=== PATIENT | male | born 1995 | race Caucasian/White ===

== ENCOUNTER 2018-03-04 18:12 | Day surgery (SDC) | payer SELFPAY ==
[~2018-03-04] VITALS: Ht 157.5 cm; Wt 117.9 kg
[2018-03-04] MEDS ORDERED: PIPERACILLIN/TAZO*3.375GM VIAL 3.375 GM in NS(*) 0.9% 100 ML ADDVANT BAG 100 ML IVPB ONE (18:30)
[2018-03-04] MEDS ORDERED: NORMOSOL R SOLN(*) 1000 ML BAG 1,000 ML IV ONE (18:31)
[2018-03-04 18:32] VITALS: BP 141/77
--- NOTE | 2018-03-04 18:37 | Gen Surgery History & Physical ---
History of Present Illness Chief Complaint RLQ abdominal pain History of Present Illness 22 yo male with RLQ pain X 24 hours. +NV, + anorexia. Pain exacerbated with movement and palpation. Presented to urgent care for eval, where ABD CT scan performed revealed early acute appendicitis. No hx IBD or prior abd surgery. No FCS. No symptoms. History Unable To Obtain Past Medical: reviewed Problems: Review of Systems All Systems Reviewed/Normal: Yes, Except as Noted Gastrointestinal: Other (see HPI) Exam General Appearance: Alert, Awake, No Acute Distress, Afebrile Neuro: No Gross deficits Eyes: PERRLA Cardiovascular: Regular Rate and Rhythm, No Edema, No JVD Respiratory: No Respiratory Distress, Clear to Auscultation GI: Other (soft, non-distended, pablito RLQ with + peritoneal signs) : No CVA Tenderness Extremities: Soft and Non Tender, Warm, Pulses, Perfused Integumentary: Skin Intact without Lesion / Mass Psych: Alert & Oriented X3, Appropriate Mood & Affect Medical Decision Making EKG / Imaging Monitor Interpretation: Normal Sinus Rhythm Pre-Admit Course Medical Record Review: Yes Assessment and Plan Problems: (1) Appendicitis Status: Acute Assessment & Plan: Pt recommended to undergo lap' appendectomy, possible open procedure. Proc, risks, benefits discussed at length with the pt. He understands risk of bleeding, infection, abscess, leak, damage to viscera, and need for secondary intervention. Questions answered. Informed consent signed. Time Spent: < 30 min Venous Thromboembolism VTE Risk Physician Assess for VTE Risk: Yes Patient's VTE Risk: Low VTE Diagnostic Test 2 Days Prior to Admit: No Antithrombotics Is Pt On Any Antithrombotics?: No Prophylaxis Tx Contraindicated Pharmacological Contraindicati: Pt at Low Risk for VTE Mechanical Contraindications: Pt at Low Risk for VTE BUCK GALO MD Mar 04, 2018 18:37
[2018-03-04] MEDS ORDERED: FAMOTIDINE(*) 20MG/50ML PREMIX 50 ML IVPB ONE (18:42)
[2018-03-04] MEDS ORDERED: BUPIVACAIN 0.25% INJ 50ML VIAL ONE (18:45)
[2018-03-04] MEDS ORDERED: fentaNYL CITR 250 MCG/5 ML AMP ONE (18:48)
[2018-03-04] MEDS ORDERED: PROPOFOL EMUL(*) 10MG/ML 20 ML 40 ML ONE (18:49)
[2018-03-04] MEDS ORDERED: ONDANSETRON 4 MG/2 ML VIAL ONE (18:49)
[2018-03-04] MEDS ORDERED: DEXAMETHASONE SOD PHOS 10MG/ML ONE (18:49)
[2018-03-04] MEDS ORDERED: MIDAZOLAM 2 MG/2 ML VIAL ONE (18:49)
[2018-03-04] MEDS ORDERED: LIDOCAINE MPF 1% 5 ML VIAL ONE (18:49)
[2018-03-04] MEDS ORDERED: SUGAMMADEX SOD 200 MG/2 ML SDV ONE (18:51)
[2018-03-04] MEDS ORDERED: HALOPERIDOL LACT 5 MG/ML VIAL IM ONE (18:57)
[2018-03-04] MEDS ORDERED: MEPERIDINE 50 MG/ML SYR ONE (20:21)
--- NOTE | 2018-03-04 20:24 | Post Operative Progress Note ---
Post Operative Progress Note Date: Mar 04, 2018 Time: 20:22 Surgeon: Buck Eduardo MD Plane Runner: none Anesthesia: GETA Pre-Op Diagnosis: acute appendicitis Post-Op Diagnosis: same Findings: acute suppurative appendicitis Procedure(s): lap appendectomy Specimen Removed:(May be N/A): appendix Complications: none Total Tourniquet Time: NA Splint: NA Fluids: 1000 ml Estimated Blood Loss: < 50 ml Date OP Note Dictated: Mar 04, 2018 Time OP Note Dictated: 20:23 (Dictation # [id number]) BUCK EDUARDO MD Mar 04, 2018 20:24
[2018-03-04] MEDS ORDERED: HYDR-4309 PO (20:41)
[2018-03-04] MEDS ORDERED: fentaNYL CITR 100 MCG/2 ML AMP ONE (20:59)
[2018-03-04] MEDS ORDERED: APAP/HYDROCODONE 325/7.5 TAB ONE (21:09)
[2018-03-04] MEDS ORDERED: APAP/HYDROCODONE 325/5 TAB ONE ×2 (21:10→21:55)
[2018-03-04 21:15] VITALS: BP 137/66
[2018-03-04 21:24] VITALS: BP 142/76
[2018-03-04 21:26] VITALS: BP 129/92
[2018-03-04] MEDS ORDERED: ACET/HYDROC 5/325MG TH ER ONLY 2 TAB/BOTTLE ONE (21:29)
[2018-03-04 22:06] VITALS: BP 149/87
--- NOTE | 2018-03-05 13:28 | OPERATIVE REPORT 1 ---
EVENT DATE: March 04, 2018 SURGEON: Madison Eduardo MD ANESTHESIOLOGIST: Felice Farah MD ANESTHESIA: General endotracheal anesthesia. PREOPERATIVE DIAGNOSIS Acute appendicitis. POSTOPERATIVE DIAGNOSIS Acute appendicitis. PROCEDURE PERFORMED Laparoscopic appendectomy. INDICATIONS FOR OPERATION This patient is a 22-year-old male with acute peritoneal signs to the right lower quadrant with abnormal CT scan consistent with acute appendicitis. He is brought to the operating room at this time for appendectomy. FINDINGS AT TIME OF OPERATION The patient had a markedly inflamed, acute, suppurative appendicitis with dense adhesions in the right lower quadrant. No evidence of gross perforation. Wound class III. DETAILS OF THE OPERATION On March 04, 2018, patient was brought to the operating room, placed in the supine position. Appropriate lines and monitors were placed. The patient was induced and intubated under general anesthesia without difficulty. He was then prepped and draped in the usual sterile manner. An appropriate timeout was completed prior to the operation. An infraumbilical incision was made to establish a pneumoperitoneum in the standard fashion. Skin, subcutaneous, and fascial tissue were divided using sharp dissection. Peritoneal cavity entered without difficulty. A Rosetta trocar was inserted. The pneumoperitoneum was established. Under direct visualization, two additional trocars were placed, a 5 mm along the lower midline and a 12 mm in the right lower quadrant. The patient was placed in the Trendelenburg position. The appendix was dissected free from its position in the right lower quadrant. A mesoappendix window at the base of the appendix was then fashioned using blunt dissection. The appendix and the mesoappendix were divided using the laparoscopic stapler. The appendix was placed in the Endo Pouch and removed from the abdominal cavity without difficulty. The mesoappendix did require several Ligaclips to maintain hemostasis. The operative field was irrigated copiously, and hemostasis was intact. The fascia at the right lower quadrant was closed with the Clayton- Talib device. All trocars were removed under direct vision, and the sites were hemostatic. Pneumoperitoneum was evacuated. The fascia at the umbilical site was closed with the two stay sutures in a [id number] fashion. Wound was infiltrated with a total of 40 mL 0.25% Marcaine. Skin edge reapproximated with a running subcuticular 4-0 PDS. Wounds were then dressed with dry, sterile gauze. Patient was then extubated and taken to the recovery room in stable condition. He tolerated the procedure well. Estimated blood loss less than 50 mL. Final sponge and needle count reported correct times two. CRISTINE
== END 2018-03-04 21:15 | disposition home or self-care (01) ==
LOC: OR 18:12
PROVIDERS: ATTEND Surgery
DX: K35.80 Unspecified acute appendicitis (principal)
CPT/HCPCS: 44970; 88304; J1100; J1630; J2001; J2175; J2250; J2405; J2543; J2704; J3010; J3490; J7050

== ENCOUNTER → 2018-03-04 | Outpatient (CLI) | payer SELFPAY ==
[~2018-03-04] MED LIST: HYDR-4309 PO; IOPAMIDOL 76% 75 ML INFUS BTL 75 ML ONE
--- NOTE | 2018-03-04 17:55 | RADIOLOGY IMAGING REPORT ---
FACILITY: [facility] PATIENT NAME: Alejandro Pickett : 1995 MR: [id number] V: [id number] EXAM DATE: ORDERING PHYSICIAN: MARTA MA TECHNOLOGIST: [facility] Patient: Alejandro Pickett : 1995 Visit/Account:[id number] Date of Sevice: 03/04/2018 EXAMINATION: CT abdomen and pelvis with contrast COMPARISON: None. HISTORY: Abdominal pain. PROCEDURE: Multiplanar contrast enhanced CT of the abdomen and pelvis with 75 mL intravenous Isovue 3 70. One of the following dose optimization techniques was utilized in the performance of this exam: A utomated exposure control; adjustment of the mA and/or kV according to the patient's size; or use of an iterative reconstruction technique. Specific details can be referenced in the facility's radiolo gy CT exam operational policy. FINDINGS: Visualized thorax: Negative. Liver: Negative. Gallbladder and biliary system: Negative Spleen: Negative. Pancreas: Negative. Adrenal glands: Negative. Kidneys and bladder: No renal mass or evidence of an obstructive uropathy. Urinary bladder is unrema rkable. Vessels: Within normal limits. Bowel and mesentery: Stomach is within normal limits. Small bowel is unremarkable. 12 mm appendix wit h periappendiceal inflammation and trace likely reactive fluid in the right paracolic gutter. No calc ified appendicolith. No organized fluid collection or extraluminal gas is identified. Small amount of stool in the colon. No other site of bowel or mesenteric inflammation. Pelvic organs: Negative. Lymph nodes: Prominent right lower quadrant lymph nodes are presumably reactive. Free air/free fluid: No organized fluid collection. No pneumoperitoneum. Abdominal wall and osseous structures: Abdominal wall is intact. L4 chronic bilateral pars defects. N o spondylolisthesis. No acute osseous abnormality. IMPRESSION: 1. Acute uncomplicated appendicitis. 2. L4 chronic bilateral pars defects. Results were discussed with MARTA MA at 03/04/2018 5:50 PM. Report Dictated By: Gilmar Rdz MD at 03/04/2018 5:42 PM Report E-Signed By: Gilmar Rdz MD at 03/04/2018 5:50 PM WSN:[id number]
== END ==
LOC: CT 16:38
PROVIDERS: ATTEND Physician Assistant Medical
DX: K35.80 Unspecified acute appendicitis (principal); M43.06 Spondylolysis, lumbar region
CPT/HCPCS: 74177; Q9967

== ENCOUNTER → 2018-03-04 | Outpatient (REF) | payer SELFPAY ==
[~2018-03-04] MED LIST changes: -IOPAMIDOL 76% 75 ML INFUS BTL 75 ML ONE
[2018-03-04 15:31] LABS: PLATELET COUNT, AUTOMATED 338 K/uL (150-450)
== END ==
PROVIDERS: ATTEND Physician Assistant Medical
DX: R10.9 Unspecified abdominal pain (principal)
CPT/HCPCS: 82040; 82247; 82310; 82374; 82435; 82565; 82947; 84075; 84132; 84155; 84295; 84450; 84460; 84520; 85025

== ENCOUNTER 2018-08-20 14:14 | Emergency (ER) | payer OTHER ==
--- NOTE | 2018-08-20 14:24 | ER Report ---
History and Physical Time Seen By MD: 14:24 Hx. of Stated Complaint: PT SENT BY [facility] MD TO GET CPK RECHECKED. PT HAS MUSCLE PAIN THAT IS STARTING TO RESOLVE AFTER A HARD WORKOUT 1 WEEK AGO. HPI/ROS CHIEF COMPLAINT: Concern for rhabdomyolysis. HISTORY OF PRESENT ILLNESS: This is a 23 year old male. He had labs done at [facility] yesterday after very heavy workout with severe muscle pain. Dr. Brown called from [facility] at the [place] letting me know the CPK level from yesterday was 8000. The patient was shopping in [place] and came back for repeat labs and re-evaluation to see if he needed to be admitted. His pain is improving and he has been increasing fluid intake. He has never had rhabdo in the past that he is aware of. He does take creatine supplements and did do a lower body heavy burn-out type workout. Allergies: Coded Allergies: nickel (Verified Allergy, Mild, RASH, 03/04/18) Home Meds Reported Medications Hydrocodone Bit/Acetaminophen (NORCO 5-325 TABLET) 1 Each Tablet, 1-2 EACH PO Q6H PRN for PAIN, TAB 03/04/18 Reviewed Nurses Notes: Yes Hx Smoking: No Hx Substance Use Disorder: No Hx Alcohol Use: No Constitutional Vital Sign - Last 24 Hours 08/20/18 08/20/18 08/20/18 08/20/18 14:17 14:18 14:24 14:30 Temp 98.6 Pulse 61 Resp 20 B/P (MAP) 136/76 136/76 (96) 128/73 (91) 112/62 (79) Pulse Ox 94 O2 Delivery Room Air 08/20/18 08/20/18 08/20/18 08/20/18 14:44 15:00 15:14 15:30 Pulse 63 77 B/P (MAP) 120/69 (86) 125/76 (92) Pulse Ox 94 94 08/20/18 08/20/18 08/20/18 08/20/18 15:44 16:00 16:05 16:16 Pulse 66 61 B/P (MAP) 112/63 (79) 114/69 (84) Pulse Ox 95 94 Physical Exam General: Alert, no acute distress. Cardiovascular: Regular rate and rhythm. Good capillary refill. Respiratory: Breathing easily. Skin: Warm and dry Musculoskeletal: moving with some diffuse muscle pain, but otherwise normal. Medical Decision Making Data Points Result Diagram: 08/20/18 1425 08/20/18 1425 Laboratory Hematology Test 08/20/18 14:25 08/20/18 15:43 Red Blood Count 5.65 M/uL (4.00-5.60) Mean Corpuscular Volume 86.8 fL (80.0-96.0) Mean Corpuscular Hemoglobin 29.5 pg (26.0-33.0) Mean Corpuscular Hemoglobin Concent 34.0 g/dL (32.0-36.0) Red Cell Distribution Width 13.2 % (11.5-14.5) Mean Platelet Volume 8.0 fL (7.2-11.1) Neutrophils (%) (Auto) 51.0 % (39.4-72.5) Lymphocytes (%) (Auto) 35.2 % (17.6-49.6) Monocytes (%) (Auto) 9.1 % (4.1-12.4) Eosinophils (%) (Auto) 3.6 % (0.4-6.7) Basophils (%) (Auto) 1.1 % (0.3-1.4) Nucleated RBC Relative Count (auto) 0.1 /100WBC Neutrophils # (Auto) 4.1 K/uL (2.0-7.4) Lymphocytes # (Auto) 2.9 K/uL (1.3-3.6) Monocytes # (Auto) 0.7 K/uL (0.3-1.0) Eosinophils # (Auto) 0.3 K/uL (0.0-0.5) Basophils # (Auto) 0.1 K/uL (0.0-0.1) Nucleated RBC Absolute Count (auto) 0.01 K/uL Sodium Level 141 mmol/L (137-145) Potassium Level 3.9 mmol/L (3.5-5.0) Chloride Level 101 mmol/L (98-107) Carbon Dioxide Level 29 mmol/L (22-30) Blood Urea Nitrogen 15 mg/dl (9-21) Creatinine 1.00 mg/dl (0.66-1.25) Glomerular Filtration Rate Calc > 60.0 Random Glucose 88 mg/dl (75-110) Calcium Level 9.9 mg/dl (8.4-10.2) Total Bilirubin 0.8 mg/dl (0.2-1.3) Aspartate Amino Transf (AST/SGOT) 106 U/L (0-35) Alanine Aminotransferase (ALT/SGPT) 86 U/L (0-56) Alkaline Phosphatase 38 U/L (0-126) Total Creatine Kinase 4325 U/L (55-170) Total Protein 7.5 g/dl (6.3-8.2) Albumin 4.5 g/dl (3.5-5.0) Urine Color Yellow Urine Clarity Slightly-cloudy Urine pH 6.0 pH (4.8-9.5) Urine Specific Farber 1.020 Urine Protein Negative mg/dL (NEGATIVE) Urine Glucose (UA) Negative mg/dL (NEGATIVE) Urine Ketones Negative mg/dL (NEGATIVE) Urine Blood Negative (NEGATIVE) Urine Nitrite Negative (NEGATIVE) Urine Bilirubin Negative (NEGATIVE) Urine Urobilinogen Negative mg/dL (0.2-1.9) Urine Leukocyte Esterase Negative (NEGATIVE) Urine RBC <1 /HPF (0-2/HPF) Urine WBC <1 /HPF (0-5/HPF) Urine Squamous Epithelial Cells Few /LPF (</=FEW) Urine Bacteria Negative /HPF (NONE-FEW) Urine Mucus Few /HPF (NONE-FEW) Chemistry Test 08/20/18 14:25 08/20/18 15:43 White Blood Count 8.1 k/uL (4.5-11.0) Red Blood Count 5.65 M/uL (4.00-5.60) Hemoglobin 16.6 g/dL (14.0-18.0) Hematocrit 49.0 % (42.0-52.0) Mean Corpuscular Volume 86.8 fL (80.0-96.0) Mean Corpuscular Hemoglobin 29.5 pg (26.0-33.0) Mean Corpuscular Hemoglobin Concent 34.0 g/dL (32.0-36.0) Red Cell Distribution Width 13.2 % (11.5-14.5) Platelet Count 326 K/uL (150-450) Mean Platelet Volume 8.0 fL (7.2-11.1) Neutrophils (%) (Auto) 51.0 % (39.4-72.5) Lymphocytes (%) (Auto) 35.2 % (17.6-49.6) Monocytes (%) (Auto) 9.1 % (4.1-12.4) Eosinophils (%) (Auto) 3.6 % (0.4-6.7) Basophils (%) (Auto) 1.1 % (0.3-1.4) Nucleated RBC Relative Count (auto) 0.1 /100WBC Neutrophils # (Auto) 4.1 K/uL (2.0-7.4) Lymphocytes # (Auto) 2.9 K/uL (1.3-3.6) Monocytes # (Auto) 0.7 K/uL (0.3-1.0) Eosinophils # (Auto) 0.3 K/uL (0.0-0.5) Basophils # (Auto) 0.1 K/uL (0.0-0.1) Nucleated RBC Absolute Count (auto) 0.01 K/uL Glomerular Filtration Rate Calc > 60.0 Calcium Level 9.9 mg/dl (8.4-10.2) Total Bilirubin 0.8 mg/dl (0.2-1.3) Aspartate Amino Transf (AST/SGOT) 106 U/L (0-35) Alanine Aminotransferase (ALT/SGPT) 86 U/L (0-56) Alkaline Phosphatase 38 U/L (0-126) Total Creatine Kinase 4325 U/L (55-170) Total Protein 7.5 g/dl (6.3-8.2) Albumin 4.5 g/dl (3.5-5.0) Urine Color Yellow Urine Clarity Slightly-cloudy Urine pH 6.0 pH (4.8-9.5) Urine Specific Farber 1.020 Urine Protein Negative mg/dL (NEGATIVE) Urine Glucose (UA) Negative mg/dL (NEGATIVE) Urine Ketones Negative mg/dL (NEGATIVE) Urine Blood Negative (NEGATIVE) Urine Nitrite Negative (NEGATIVE) Urine Bilirubin Negative (NEGATIVE) Urine Urobilinogen Negative mg/dL (0.2-1.9) Urine Leukocyte Esterase Negative (NEGATIVE) Urine RBC <1 /HPF (0-2/HPF) Urine WBC <1 /HPF (0-5/HPF) Urine Squamous Epithelial Cells Few /LPF (</=FEW) Urine Bacteria Negative /HPF (NONE-FEW) Urine Mucus Few /HPF (NONE-FEW) Urinalysis Test 08/20/18 15:43 Urine Color Yellow Urine Clarity Slightly-cloudy Urine pH 6.0 pH (4.8-9.5) Urine Specific Farber 1.020 Urine Protein Negative mg/dL (NEGATIVE) Urine Glucose (UA) Negative mg/dL (NEGATIVE) Urine Ketones Negative mg/dL (NEGATIVE) Urine Blood Negative (NEGATIVE) Urine Nitrite Negative (NEGATIVE) Urine Bilirubin Negative (NEGATIVE) Urine Urobilinogen Negative mg/dL (0.2-1.9) Urine Leukocyte Esterase Negative (NEGATIVE) Urine RBC <1 /HPF (0-2/HPF) Urine WBC <1 /HPF (0-5/HPF) Urine Squamous Epithelial Cells Few /LPF (</=FEW) Urine Bacteria Negative /HPF (NONE-FEW) Urine Mucus Few /HPF (NONE-FEW) ED Course/Re-evaluation Clinical Indication for ER IV: Hydration, IV Access ED Course Labs show CK level has come down to about 4800 now. Normal BUN and Creatinine and no urine myoglobin. He appears to be improving with oral rehydration and time and no signs of kidney function. He had 2 liters of normal saline IV. Discussed labs and need for continued oral hydration. Recommended another rest day for tomorrow. He knows what signs to watch for to return and we discussed further lifting and caution in avoiding this situation in the future. Decision to Disposition Date: Aug 20, 2018 Decision to Disposition Time: 16:21 Depart Departure Latest Vital Signs Vital Signs Date Time Temp Pulse Resp B/P (MAP) Pulse Ox O2 Delivery O2 Flow Rate FiO2 08/20/18 16:16 114/69 (84) 08/20/18 16:05 61 94 08/20/18 14:17 98.6 20 Room Air Impression: Primary Impression: Rhabdomyolysis Condition: Improved Disposition: HOME OR SELF-CARE Patient Instructions: Rhabdomyolysis (ED) Additional Instructions: Keep increasing fluid intake. Return if needed for worsening pain, decreased or dark urination. Problem Qualifiers Primary Impression: Rhabdomyolysis Rhabdomyolysis type: non-traumatic Qualified Codes: M62.82 - Rhabdomyoly sis TOBIN VALDEZ MD Aug 20, 2018 14:24
[2018-08-20] MEDS ORDERED: NS(*) 0.9% 1000 ML BAG 1,000 ML IV ONE ×2 (14:30)
[2018-08-20 14:38] LABS: PLATELET COUNT, AUTOMATED 326 K/uL (150-450)
[2018-08-20 16:16] VITALS: BP 114/69
== END 2018-08-20 16:27 | disposition home or self-care (01) ==
LOC: ER 14:16
DX: M62.82 Rhabdomyolysis (principal)
CPT/HCPCS: 81001; 82550; 85025; 96360; 96361; 99283; J7030; 82040; 82247; 82310; 82374; 82435; 82565; 82947; 84075; 84132; 84155; 84295; 84450; 84460; 84520